=== PATIENT | female | born 1985 | race African-American/Black ===

== ENCOUNTER 2019-02-19 09:26 | Day surgery (SDC) | payer OTHER ==
[2019-02-12 16:08] VITALS: BMI 39.9
[2019-02-19 09:45] VITALS: BP 157/97; PULSE 98; TEMP 99.1
[2019-02-19] MEDS ORDERED: DEXAMETHASONE SOD PHOSPHATE 4 MG/1 ML VIAL ONE (10:09)
[2019-02-19] MEDS ORDERED: MIDAZOLAM HCL 2 MG/2 ML SINGLE DOSE VIAL ONE ×2 (10:09→10:25)
[2019-02-19] MEDS ORDERED: ONDANSETRON 4 MG/2 ML VIAL ONE (10:09)
[2019-02-19] MEDS ORDERED: PROPOFOL 20 ML ONE (10:09)
[2019-02-19] MEDS ORDERED: ROCURONIUM BROMIDE 50 MG/5 ML SYRINGE ONE (10:09)
[2019-02-19] MEDS ORDERED: BUPIVACAINE HCL/PF 0.5% (5 MG/ML) 30 ML VIAL IJ ONE (10:25)
== END 2019-02-19 12:20 | disposition home or self-care (01) ==
LOC: UNDOADMIN 09:26 → FM/S 09:26 → FASUSAT 09:26 → EDSTATUS 12:00 → FASUSAT 12:20
PROVIDERS: ATTEND Surgery
PROC: 0DV64CZ Restriction of Stomach with Extraluminal Device, Percutaneous Endoscopic Approach (ICD-10-PCS; principal; 2019-02-19)
DX: Z53.09 Procedure and treatment not carried out because of other contraindication (principal); E66.01 Morbid (severe) obesity due to excess calories; Z68.39 Body mass index [BMI] 39.0-39.9, adult
CPT/HCPCS: 36415; 84703

== ENCOUNTER 2019-02-26 10:34 | Inpatient (IN) | payer OTHER ==
[2019-02-23 10:45] VITALS: BMI 39.9
[2019-02-26] MEDS ORDERED: BUPIVACAINE HCL/PF 0.5% (5 MG/ML) 30 ML VIAL IJ ONE ×2 (11:20→11:54)
[2019-02-26] MEDS ORDERED: MIDAZOLAM HCL 2 MG/2 ML SINGLE DOSE VIAL ONE ×2 (11:20→11:54)
--- NOTE | 2019-02-26 11:42 | HP ---
Admitting History and Physical - Admission Chief Complaint: Morbid obesity History Source: Patient Limitations to Obtaining History: No Limitations - Past Medical History ...LMP: 02/10/19 - Smoking History Smoking history: Never smoked - Alcohol/Substance Use Hx Alcohol Use: No - Social History ADL: Independent Home Medications - Allergies Allergies/Adverse Reactions: Allergies Allergy/AdvReac Type Severity Reaction Status Date / Time fluconazole [From Diflucan] Allergy Rash Verified 02/19/19 09:41 shellfish Allergy Rash Uncoded 02/19/19 09:41 - Home Medications Home Medications: Ambulatory Orders Docusate Sodium [Colace -] 100 mg PO TID #90 capsule 02/26/19 Famotidine [Pepcid] 20 mg PO BID #60 tablet 02/26/19 Ondansetron [Zofran -] 8 mg PO TID #30 tablet 02/26/19 Oxycodone HCl/Acetaminophen [Percocet 5-325 mg Tablet] 1 - 2 tab PO Q6H #28 tab MDD 4 02/26/19 Family Medical History Family History: Unremarkable Review of Systems - Review of Systems Constitutional: denies: Chills, Fever HENT: reports: No Symptoms Neck: reports: No Symptoms Cardiovascular: reports: No Symptoms Respiratory: reports: No Symptoms Gastrointestinal: reports: No Symptoms Neurological: reports: No Symptoms Pain Intensity: 0 Physical Examination Vital Signs: Vital Signs Temperature 99.7 F H 02/26/19 11:21 Pulse Rate 101 H 02/26/19 11:21 Respiratory Rate 17 02/26/19 11:21 Blood Pressure 163/101 H 02/26/19 11:21 O2 Sat by Pulse Oximetry (%) Constitutional: Yes: Calm Neck: Yes: WNL Cardiovascular: Yes: WNL Respiratory: Yes: Regular Gastrointestinal: Yes: Soft, Abdomen, Obese Neurological: Yes: Alert, Oriented Problem List - Problems (1) Morbid obesity due to excess calories Code(s): E66.01 - MORBID (SEVERE) OBESITY DUE TO EXCESS CALORIES Assessment/Plan Laparoscopic possible open vertical sleeve gastrectomy possible liver biopsy possible upper endoscopy
[2019-02-26] MEDS ORDERED: BUPIVACAINE HCL 0.25% 125 MG/50 ML VIAL ONE (11:51)
[2019-02-26] MEDS ORDERED: ONDANSETRON 4 MG/2 ML VIAL ONE (12:00)
[2019-02-26] MEDS ORDERED: PROPOFOL 20 ML ONE (12:00)
[2019-02-26] MEDS ORDERED: ceFAZolin SODIUM 1 GM VIAL ONE (12:00)
[2019-02-26] MEDS ORDERED: fentaNYL CITRATE 250 MCG/5 ML VIAL ONE (12:00)
[2019-02-26] MEDS ORDERED: ROCURONIUM BROMIDE 50 MG/5 ML SYRINGE ONE (12:03)
[2019-02-26] MEDS ORDERED: HYDROmorphone HCL/PF 1 MG/ML AMP ONE (13:07)
[2019-02-26] MEDS ORDERED: BUPIVACAINE HCL/PF 0.25% (2.5MG/ML) 10 ML VIAL IJ ONE (13:33)
[2019-02-26] MEDS ORDERED: METOCLOPRAMIDE HCL INJECTION 10 MG/2 ML VIAL IVPUSH SCH (13:45)
[2019-02-26] MEDS ORDERED: ACETAMINOPHEN 1000 MG/100 ML VIAL (NON FORMULARY) IVPB SCH (13:45)
[2019-02-26] MEDS ORDERED: SODIUM CHLORIDE 1,000 ML IV SCH (13:45)
--- NOTE | 2019-02-26 13:45 | OP ---
Operative Note - Note: Operative Date: 02/26/19 Pre-Operative Diagnosis: Morbid obesity Operation: Diagnostic laparoscopy. Laparoscopic vertical sleeve gastrectomy. Laparoscopic hiatal hernia repair. Laparoscopic wedge liver biopsy Findings: Intraoperative hiatal hernia seen Post-Operative Diagnosis: Same as Pre-op (as well as hepatomegaly and hiatal hernia) Surgeon: Edson Porras Anesthesia: General Specimens Removed: Greater curvature of stomach. Liver biopsy Estimated Blood Loss (mls): 30 Drains & Tubes with Location: 36 Fr Bougie Operative Report Dictated: Yes
[2019-02-26] MEDS ORDERED: NEOSTIGMINE METHYLSULFATE 0.5 MG/ML - 10 ML MDV ONE (13:46)
[2019-02-26] MEDS ORDERED: GLYCOPYRROLATE 0.2 MG/1 ML VIAL ONE (13:47)
[2019-02-26] MEDS ORDERED: FAMOTIDINE 20 MG/50 ML IVPB 20 MG/50 ML MG IVPB ONE (13:50)
--- NOTE | 2019-02-26 13:59 | SPEC ---
DATE OF OPERATION: 02/26/2019 PLACE OF SERVICE: [facility], [address] [place] [address] SURGEON: Edson Porras MD [employer] ATTENDANT: Star العراقي MD PREOPERATIVE DIAGNOSIS: Morbid obesity. POSTOPERATIVE DIAGNOSES: Morbid obesity, hepatomegaly, and hiatal hernia. PROCEDURE: 1. Diagnostic laparoscopy. 2. Laparoscopic hiatal hernia repair. 3. Laparoscopic vertical sleeve gastrectomy. 4. Laparoscopic wedge liver biopsy. SPECIMEN: 1. Greater curvature of the stomach. 2. Liver biopsy. ESTIMATED BLOOD LOSS: 30 mL. DRAINS: None. ANESTHESIA: GET. BOUGIE SIZE: 36-Bur[place]ian. REASON FOR PROCEDURE: This is a 33-year-old female who presents to the office for weight loss options. After describing different options, she decided to proceed with a laparoscopic, possible open, vertical sleeve gastrectomy, possible liver biopsy, upper endoscopy. Risks and benefits of the procedure were explained. The patient was seen by the respective subspecialties and cleared for surgery. The risks and benefits of the procedure were explained. These included bleeding, infection, hernia, AR, DVT, PE, injury to surrounding structures including the liver, colon, bowel, spleen, esophagus, vessel injury, nerve injury, weight regain, gastric leak, staple line leak, sleeve leak, obstruction, vitamin deficiency, hair loss and as some of the possible complications. The patient understood and signed informed consent. DESCRIPTION OF PROCEDURE: The patient was placed supine on the operating room table. The patient underwent general endotracheal intubation. The arms were brought out at 90 degrees and secured. A footboard was placed and the legs were secured laterally with padding. The abdomen was prepped and draped in the usual sterile fashion. A timeout was performed. An incision was made in the left upper quadrant and a Veress needle inserted. Pneumoperitoneum was established. Subsequently, the Veress needle was removed and a 5-mm trocar was placed under direct visualization with the laparoscope. The laparoscopic camera was then inserted and inspection of the abdominal cavity was performed. An incision was then made in the supraumbilical area and a 15-mm trocar was placed under direct visualization. A 5-mm trocar was then placed in the right upper quadrant and a 5-mm trocar was placed below the left subcostal margin. A stab wound was made in the subxiphoid area and a Layne clamp inserted and removed to dilate the tract. A Danielle liver retractor was inserted. The post was secured at the bedside by the nursing staff. The patient was placed in steep reverse Trendelenburg position and the Danielle liver retractor was used to secure the liver towards the anterior abdominal wall. The pylorus was identified and 6 cm proximal to it, the lesser sac was entered using the LigaSure device. All lateral attachments to the greater curvature of the stomach, including the short gastric vessels, were ligated using the LigaSure device toward the gastrosplenic and gastrophrenic ligaments. Once this was done in its entirety, it was confirmed that all tubes within the nasal or oropharyngeal cavity, including a temperature probe were removed by Anesthesia. The bougie was then inserted by Anesthesia. Transection of the stomach was then begun staying adjacent to the bougie but away from the angularis. Transection of the stomach was performed near the portion of the stomach where the lesser sac was entered. Two laparoscopic Endo-NORM black sourav were used at this location. Laparoscopic Endo NORM purple staple loads were then used for the remainder of the transection until the greater curvature of the stomach was fully transected. This was done staying close to the bougie. Care was taken to stay away from the angle of His cephalad. The staple line was then inspected. Hemostasis was identified. A leak test was then performed. It was clamped distally to the staple line. Irrigation solution was placed in the left upper quadrant and air was insufflated by Anesthesia into the sleeve. No leaks were identified. No obstruction was identified. This was done through the entirety of the staple line. The stomach was suctioned and the bougie removed fully intact under direct visualization. At this point, the irrigation solution was suctioned and again, hemostasis was noted. At this time beginning of the case after the diagnostic laparoscopy portion was completed, a hiatal hernia was noted. Because of this, the hiatal hernia was closed using the Endo Stitch device and closed using Ethibond suture in a [id number] fashion. A wedge liver biopsy was then performed. The left lobe of the liver was identified. A portion of the edge of the left lobe of the liver was grasped. Using electrocautery, a wedge of the left liver was excised. The specimen was removed and sent off the field. Hemostasis of the wedge liver biopsy site was attained and noted using electrocautery. The 15-mm supraumbilical trocar was then removed and the greater curvature specimen removed from the site using a sponge stick jimenez. A Marcellus-Cristina device was then used to close the fascia with a 0 Vicryl suture at the site. Again, hemostasis was noted. The Danielle liver retractor was then removed under direct visualization. Pneumoperitoneum was desufflated. Hemostasis was noted at all incision sites and Marcaine was injected at all incision sites. A 3-0 Vicryl suture was used to close the deep subcutaneous tissue at the 15-mm incision site. All incision sites were closed using 4-0 Biosyn. Sterile dressings were applied. The patient tolerated the procedure well and was transferred to the recovery room in stable condition. Gerard MACHADO/[id number]
[2019-02-26] MEDS ORDERED: FAMOTIDINE 20 MG PREMIXED IVPB IVPB ONE (14:00)
[2019-02-26 14:30] LABS: HEMATOCRIT 36.9 % (32.4-45.2); HEMOGLOBIN 11.5 GM/dl (10.7-15.3); MCH 23.2 pg (25.7-33.7); MCHC 31.1 g/dl (32.0-36.0); MEAN CELL VOLUME 74.5 fl (80-96); MEAN PLT VOLUME 11.3 fl (7.5-11.1); PLATELET COUNT 168 K/MM3 (134-434); RBC 4.95 M/mm3 (3.60-5.2); RDW 15.2 % (11.6-15.6); WHITE BLOOD COUNT 10.3 K/mm3 (4.0-10.8)
[2019-02-26 14:48] LABS: ALBUMIN 3.3 g/dl (3.4-5.0); BILIRUBIN,TOTAL 0.6 mg/dl (0.2-1); CALCIUM 8.3 mg/dl (8.5-10); POTASSIUM 4.2 mmol/L (3.5-5.1); TOT PROT 6.7 g/dl (6.4-8.2)
[2019-02-26] MEDS: ONDANSETRON 4 MG/2 ML VIAL IVPUSH SCH ×2 (16:51→21:54)
[2019-02-26] MEDS: HYDROmorphone HCL CARPU-JECT 1 MG/1 ML DISP.SYRIN IVPB PRN (18:35)
[2019-02-26] MEDS: METOCLOPRAMIDE HCL INJECTION 10 MG/2 ML VIAL IVPUSH SCH (20:26)
[2019-02-26] MEDS: ACETAMINOPHEN 1000 MG/100 ML VIAL (NON FORMULARY) IVPB SCH (20:26)
[2019-02-26] MEDS: ENOXAPARIN NA (PORCINE) 40 MG/0.4 ML DISP.SYRIN SQ SCH (21:54)
[2019-02-26] MEDS: FAMOTIDINE 20 MG/50 ML IVPB 20 MG/50 ML MG IVPB SCH (21:54)
[2019-02-27] MEDS: ONDANSETRON 4 MG/2 ML VIAL IVPUSH SCH ×5 (02:41→14:03)
[2019-02-27] MEDS: ACETAMINOPHEN 1000 MG/100 ML VIAL (NON FORMULARY) IVPB SCH ×2 (02:55→09:15)
[2019-02-27] MEDS: METOCLOPRAMIDE HCL INJECTION 10 MG/2 ML VIAL IVPUSH SCH ×3 (02:56→15:05)
[2019-02-27] MEDS: HYDROmorphone HCL CARPU-JECT 1 MG/1 ML DISP.SYRIN IVPB PRN ×2 (07:00→13:19)
--- NOTE | 2019-02-27 07:40 | DS ---
Physical Exam: SUBJECTIVE: Patient seen and examined. Reports she is doing well today. Wants to go home. Has been oob without issue. Voiding. No flatus yet. No n/v. Denies cp/sob, calf pain. OBJECTIVE: Vital Signs Period Temp Pulse Resp BP Sys/Farmer Pulse Ox Last 24 Hr 97.9 F-99.7 F 77-109 16-20 139-152/72-95 96-100 PHYSICAL EXAM GENERAL: The patient is awake, alert, and fully oriented, in no acute distress. HEAD: Normal with no signs of trauma. LUNGS: Unlabored on RA. No accessory muscle use. ABDOMEN: Soft, minimally ttp at incision sites. Nondistended, normoactive bowel sounds, no guarding, no rebound. Bandages c/d/i. EXTREMITIES: 2+ pulses, warm, well-perfused, no edema. No calf ttp. LABS Laboratory Results - last 24 hr 02/26/19 02/26/19 02/26/19 10:45 14:04 14:04 WBC 10.3 RBC 4.95 Hgb 11.5 Hct 36.9 MCV 74.5 L MCH 23.2 L MCHC 31.1 L RDW 15.2 Plt Count 168 MPV 11.3 H Sodium 136 Potassium 4.2 Chloride 106 Carbon Dioxide 24 Anion Gap 6 L BUN 15.0 Creatinine 1.0 Est GFR (CKD-EPI)AfAm 86.33 Est GFR (CKD-EPI)NonAf 74.49 Random Glucose 107 H Calcium 8.3 L Total Bilirubin 0.6 AST 30 ALT 44 Alkaline Phosphatase 82 Total Protein 6.7 Albumin 3.3 L Urine HCG, Qual Negative CBC, BMP 02/27/19 14:18 02/27/19 07:05 HOSPITAL COURSE: HOSPITAL COURSE: The patient was admitted to the Med-Surg Unit after elective bariatric surgery. Now, s/p laparoscopic vertical sleeve gastrectomy. The day of surgery, the patient ambulated the hallways with assistance. The patient was monitored with remote tele/continuous pulse ox. Narcotic and non-narcotic pain management control was achieved with oral and IV pain control. Upper GI series was obtained the following morning and no leak, extravastion or gastric outlet obstruction. Started on a Bariatric Stage 1 diet and tolerated well. Emily-operative IV ABX were administered in addition to GI prophylaxis. DVT prophylaxis was achieved with SCDs and early ambulation. WBC was noted to be elevated (14k from 10k), cbc was rechecked and wbc remained stable. Patient afebrile throughout hospital course. The discharge instructions and an oral pain management plan were reviewed with the patient. All questions answered. Above plan discussed with Dr. Porras and agreed. Date of Admission:02/26/19 Date of Discharge: 02/27/19 Minutes to complete discharge: 20 Discharge Summary Problems reviewed: Yes Reason For Visit: MORBID OBESITY Current Active Problems Hepatomegaly (Acute) Hiatal hernia (Acute) Morbid obesity due to excess calories (Acute) Condition: Stable - Instructions Diet, Activity, Other Instructions: [address] [facility] Edson Porras M.D. [address] [facility] 5th [place] [address] Robotic, Bariatric [place] [address] Postoperative Instructions for Bariatric Surgery Activity: Resume normal everyday activity as tolerated. You may walk and climb stairs without any limitation. We encourage you to walk as often as you can Do not lift anything more than 10 pounds for 8 weeks. At that time, you can return to full activity, including the gym, without limitation. Do not drive a motor vehicle while taking prescribes narcotic pain medication. Wound Care: If you have a bandage in place, leave it on for 3 days. At that time you may remove the outer bandage. If there are strips of tape on the skin after removing the outer bandage, leave them in place. They will fall off by themselves. Do not remove them. If there is clear glue on the skin after removing the outer bandage, leave it in place. Do not pick at it or peel it off. You may shower after taking the outer bandage off, 3 days after your surgery. If incisions become red, warm or open, please call the office. Diet: Continue a sugar-free, non-carbonated Clear liquid diet three times a day for the first week-Stage I diet. In addition, you should drink 8 ounces of water every hour. When drinking, sips should be slow and steady, not large and quick. After the first week, call the office to be advanced to the next dietary stage. Do not advance stages until instructed. Your diet will be advanced over the phone each week. Medications/Pain Management: You may resume previous medications unless told otherwise. The pills may be swallowed whole or broken if scored. You may take the prescribed narcotic pain medication as needed. If the narcotic medication is not needed for pain control, you may take Tylenol. Avoid all other pain medications including Advil, Ibuprofen, Motrin, Aspirin, Naprosyn, Aleve, Celebrex. You will receive Pepcid. Please take this twice a day as prescribed. Dizziness,Headaches/Gas Pain: Make sure you are getting enough fluids daily. Patients on diuretics or water pills may need medication adjusted. Some fluids such as broth or Gatorade may help. Gas pains are common in the first few weeks after surgery. At times they can be worse than surgical pain. Walking can help. You can also use Mylanta, Maalox, or Gas-X. Vomiting/Nausea: This may occur if you eat too fast, don't chew, or eat too much. Go back to fluids. If the vomiting or nausea persists, call the office. Constipation/Diarrhea: You may experience a change in bowel habits. Many things affect this, including a decrease in food intake, not enough fluid and taking pain medication. Some people experience diarrhea after the barium swallow in x-ray. If either persist, call the office. Follow up: Call the office at [phone] for an appointment 2 weeks after your surgical procedure. Disposition: HOME - Home Medications Comprehensive Discharge Medication List: Ambulatory Orders Docusate Sodium [Colace -] 100 mg PO TID #90 capsule 02/26/19 Famotidine [Pepcid] 20 mg PO BID #60 tablet 02/26/19 Ondansetron [Zofran -] 8 mg PO TID #30 tablet 02/26/19 Oxycodone HCl/Acetaminophen [Percocet 5-325 mg Tablet] 1 - 2 tab PO Q6H #28 tab MDD 4 02/26/19 Problem List - Problems (1) Morbid obesity due to excess calories Code(s): E66.01 - MORBID (SEVERE) OBESITY DUE TO EXCESS CALORIES This patient is new to me today: Yes Date on this admission: 02/28/19 Emergency Visit: No Critical Care patient: No - Discharge Referral Referred to [facility] Med P.C.: No
[2019-02-27 07:51] LABS: HEMOGLOBIN 11.4 GM/dl (10.7-15.3); MCH 23.3 pg (25.7-33.7); MCHC 31.6 g/dl (32.0-36.0); MEAN CELL VOLUME 73.5 fl (80-96); MEAN PLT VOLUME 11.2 fl (7.5-11.1); PLATELET COUNT 175 K/MM3 (134-434)
[2019-02-27 08:06] LABS: ALBUMIN 3.4 g/dl (3.4-5.0); BILIRUBIN,TOTAL 0.5 mg/dl (0.2-1); CALCIUM 8.7 mg/dl (8.5-10); CREATININE 0.8 mg/dl (0.55-1.3); TOT PROT 6.9 g/dl (6.4-8.2)
--- NOTE | 2019-02-27 09:07 | PN ---
Progress Note, Physician Chief Complaint: s/p gastric sleeve under general anesthesia History of Present Illness: post op day one - Current Medication List Current Medications: Active Medications Enoxaparin Sodium (Lovenox -) 40 mg SQ BID [facility] Last Admin: 02/26/19 21:54 Dose: 40 mg Hydromorphone HCl (Dilaudid Injection -) 1 mg IVPB Q3H PRN PRN Reason: PAIN LEVEL 4 - 6 Last Admin: 02/27/19 07:00 Dose: 1 mg Famotidine/Sodium Chloride (Pepcid 20 Mg Premixed Ivpb -) 20 mg in 50 mls @ 100 mls/hr IVPB BID [facility] Last Admin: 02/26/19 21:54 Dose: 100 mls/hr Sodium Chloride (Normal Saline -) 1,000 mls @ 150 mls/hr IV ASDIR YUNIOR Metoclopramide HCl (Reglan Injection -) 10 mg IVPUSH Q6H [facility] Last Admin: 02/27/19 02:56 Dose: 10 mg Ondansetron HCl (Zofran Injection) 4 mg IVPUSH Q4H [facility] Last Admin: 02/27/19 06:23 Dose: 4 mg - Objective Vital Signs: Vital Signs Temperature 98.0 F 02/27/19 05:00 Pulse Rate 77 02/27/19 05:00 Respiratory Rate 18 02/27/19 05:00 Blood Pressure 149/82 02/27/19 05:00 O2 Sat by Pulse Oximetry (%) 100 02/27/19 05:00 Constitutional: Yes: Well Nourished Cardiovascular: Yes: WNL Respiratory: Yes: WNL Gastrointestinal: Yes: WNL Labs: CBC, BMP 02/27/19 07:05 02/27/19 07:05 Assessment/Plan No adverse effects of anesthetic, dept of anesthesiology will sign off care at this time
[2019-02-27] MEDS: FAMOTIDINE 20 MG/50 ML IVPB 20 MG/50 ML MG IVPB SCH (09:16)
[2019-02-27] MEDS: ENOXAPARIN NA (PORCINE) 40 MG/0.4 ML DISP.SYRIN SQ SCH (09:18)
[2019-02-27 10:16] LABS: RDW 15.2 % (11.6-15.6)
[2019-02-27] MEDS ORDERED: oxyCODONE HCL 5 MG TABLET PO PRN (13:11)
[2019-02-27] MEDS ORDERED: SODIUM CHLORIDE 1,000 ML IV SCH (13:15)
[2019-02-27 13:33] VITALS: BP 147/78; PULSE 68; TEMP 97.9
--- NOTE | 2019-02-27 13:46 | PN ---
Progress Note (short form) - Note Progress Note: POD 1 No nausea/pain reported Vital Signs Period Temp Pulse Resp BP Sys/Farmer Pulse Ox Last 24 Hr 97.9 F-98.3 F 68-109 16-20 139-152/72-95 96-100 CBC,CMP WBC 14.8 K/mm3 (4.0-10.8) H 02/27/19 07:05 RBC 4.90 M/mm3 (3.60-5.2) 02/27/19 07:05 Hgb 11.4 GM/dl (10.7-15.3) 02/27/19 07:05 Hct 36.0 % (32.4-45.2) 02/27/19 07:05 MCV 73.5 fl (80-96) L 02/27/19 07:05 MCH 23.3 pg (25.7-33.7) L 02/27/19 07:05 MCHC 31.6 g/dl (32.0-36.0) L 02/27/19 07:05 RDW 15.2 % (11.6-15.6) 02/27/19 07:05 Plt Count 175 K/MM3 (134-434) 02/27/19 07:05 MPV 11.2 fl (7.5-11.1) H 02/27/19 07:05 Sodium 135 mmol/L (136-145) L 02/27/19 07:05 Potassium 4.0 mmol/L (3.5-5.1) 02/27/19 07:05 Chloride 103 mmol/L (98-107) 02/27/19 07:05 Carbon Dioxide 25 mmol/L (21-32) 02/27/19 07:05 Anion Gap 7 MMOL/L (8-16) L 02/27/19 07:05 BUN 9.0 mg/dl (7-18) 02/27/19 07:05 Creatinine 0.8 mg/dl (0.55-1.3) 02/27/19 07:05 Est GFR (CKD-EPI)AfAm 113.06 02/27/19 07:05 Est GFR (CKD-EPI)NonAf 97.55 02/27/19 07:05 Random Glucose 93 mg/dl (74-106) 02/27/19 07:05 Calcium 8.7 mg/dl (8.5-10) 02/27/19 07:05 Total Bilirubin 0.5 mg/dl (0.2-1) 02/27/19 07:05 AST 29 U/L (15-37) 02/27/19 07:05 ALT 44 U/L (13-61) 02/27/19 07:05 Alkaline Phosphatase 84 U/L (45-117) 02/27/19 07:05 Total Protein 6.9 g/dl (6.4-8.2) 02/27/19 07:05 Albumin 3.4 g/dl (3.4-5.0) 02/27/19 07:05 UGI: no leak/obstruction Clears Discharge home Problem List - Problems (1) Morbid obesity due to excess calories Code(s): E66.01 - MORBID (SEVERE) OBESITY DUE TO EXCESS CALORIES
[2019-02-27 14:52] LABS: HEMOGLOBIN 11.9 GM/dl (10.7-15.3); MCH 23.6 pg (25.7-33.7); MEAN CELL VOLUME 73.5 fl (80-96); MEAN PLT VOLUME 10.9 fl (7.5-11.1); PLATELET COUNT 163 K/MM3 (134-434); RBC 5.03 M/mm3 (3.60-5.2); RDW 14.8 % (11.6-15.6); WHITE BLOOD COUNT 14.1 K/mm3 (4.0-10.8)
[2019-02-27 17:09] LABS: WHITE BLOOD COUNT 14.8 K/mm3 (4.0-10.8)
--- NOTE | 2019-02-28 16:02 | PATH ---
Surgical Pathology Report Patient Name: KEYON DIALLO Med. Rec. #: [id number] /Age/Gender: 1985 (Age: 33) / F Account: [id number] Location: [facility] MED-SURG Taken: 02/26/2019 Received: 02/26/2019 Reported: 02/28/2019 Physicians: Edson Porras M.D. Specimen(s) Received A: GREATER CURVATURE STOMACH B: LIVER BIOPSY Clinical History Morbid obesity Final Diagnosis A. GREATER CURVATURE OF STOMACH, LAPAROSCOPIC GASTRIC SLEEVE EXCISION: PORTION OF STOMACH SHOWING MILD CHRONIC MUCOSAL INFLAMMATION. IMMUNOSTAIN IS NEGATIVE FOR H. PYLORI ORGANISMS. B. LIVER, BIOPSY: LIVER SHOWING MILD STEATOSIS (10-15%) AND MILD STEATOHEPATITIS (GRADE 1). TRICHROME STAIN SHOWS NO APPRECIABLE INCREASE IN FIBROSIS. IRON STAIN IS NEGATIVE. Electronically Signed Karen Craig M.D. Gross Description A. Received in formalin, labeled "greater curvature, stomach," is a 16.2 x 3.3 x 1.5 cm. portion of stomach with a stapled margin of resection. The serosa is lincoln-olvera with minimal attached fat. The mucosa is lincoln-pink with normal folds. No mucosal masses are identified. Ear Flap Binder section is submitted in one cassette. B. received in formalin, labeled "liver biopsy" is a 2.3 x 0.8 x 0.3 cm portion of yellow-brown tissue. Entirely submitted in one cassette. AE/02/27/2019 ebram/02/27/2019
== END 2019-02-27 15:25 | disposition home or self-care (01) | DRG 403 ==
LOC: FM/S 10:34
PROVIDERS: ADMIT Surgery; ATTEND Surgery
PROC: 0BQT4ZZ Repair Diaphragm, Percutaneous Endoscopic Approach (ICD-10-PCS; 2019-02-26)
PROC: 0DJ04ZZ Inspection of Upper Intestinal Tract, Percutaneous Endoscopic Approach (ICD-10-PCS; 2019-02-26)
PROC: 0DB64Z3 Excision of Stomach, Percutaneous Endoscopic Approach, Vertical (ICD-10-PCS; principal; 2019-02-26 13:03)
PROC: 0FB24ZX Excision of Left Lobe Liver, Percutaneous Endoscopic Approach, Diagnostic (ICD-10-PCS; 2019-02-26 13:03)
DX: E66.01 Morbid (severe) obesity due to excess calories (principal); Z68.39 Body mass index [BMI] 39.0-39.9, adult; I10 Essential (primary) hypertension; K44.9 Diaphragmatic hernia without obstruction or gangrene; K76.0 Fatty (change of) liver, not elsewhere classified
CPT/HCPCS: 36415; 74241-TC-FY; 80053; 84703; 85027; 88305-TC; 88313-TC; 94760; J0131; J7030; Q9967